=== PATIENT | male | born 1955 | race Caucasian/White ===

== ENCOUNTER → 2021-09-08 14:34 | Outpatient (CLI) | payer OTHER, SELFPAY ==
--- NOTE | ~2021-09-08 | CT_ITS ---
EXAMINATION: CT chest abdomen pelvis w con EXAM DATE: 09/08/2021 15:15 INDICATION: Unspecified abdominal pain, Other fatigue, Tobacco use. TECHNIQUE: Spiral CT of the chest, abdomen and pelvis was performed following intravenous injection o f 100 mL Omnipaque 350. Axial, coronal and sagittal images chest, abdomen and pelvis were reviewed. Coronal maximum intensity pixel images of chest reviewed. The dose-length product (DLP) for this ex amination was 783.47 mGy-cm. The exposure was tailored according to patient size (auto mA exposure c ontrol), and iterative reconstruction (ASIR) was used as additional dose reduction technique. There is no prior study for comparison. FINDINGS: CHEST: The lungs are clear. There are no pleural or pericardial effusions. Tracheobronchial tree is patent. There is no mediastinal, hilar or axillary lymphadenopathy. There is no pneumothorax. Heart normal in size. No evidence of coronary arterial calcification. ABDOMEN PELVIS: The liver, spleen, adrenal glands and pancreas are unremarkable. The gallbladder is contracted but otherwise unremarkable. Portal and splenic veins are patent. Kidneys enhance symmetr ically. There is no hydronephrosis. The prostate is unremarkable. The bladder is unremarkable. T here is no retroperitoneal or pelvic lymphadenopathy. There is mild scattered arteriosclerotic dise ase. The appendix is normal. The stomach and small bowel are unremarkable. There is expected amount of c olonic stool. No free intraperitoneal gas. There are no osteoblastic or osteolytic lesions identi fied. IMPRESSION: No suspicious chest, abdomen or pelvis findings. Reviewed, dictated and finalized at location A. [facility]
[2021-09-08 15:01] LABS: Estimated Glomerular Filt Rate > 60
== END ==
PROVIDERS: PCP Internal Medicine; Visit Provider Internal Medicine
DX: R53.83 Other fatigue (principal); R10.9 Unspecified abdominal pain; Z72.0 Tobacco use; R93.89 Abnormal findings on diagnostic imaging of other specified body structures
CPT/HCPCS: 71260; 74177; Q9967